=== PATIENT | female | born 1965 | race Caucasian/White ===

== ENCOUNTER → 2020-01-20 | Outpatient (CLI) | payer BC | LOC: M.NUC 01-15 08:49 | DX: M25.551 Pain in right hip (principal) ==

== ENCOUNTER → 2020-01-24 | Outpatient (CLI) | payer BC | LOC: M.CT 15:00 | DX: S32.501A Unspecified fracture of right pubis, initial encounter for closed fracture (principal); M51.37 Other intervertebral disc degeneration, lumbosacral region; Z98.890 Other specified postprocedural states; Z96.641 Presence of right artificial hip joint; W19.XXXA Unspecified fall, initial encounter; Y93.89 Activity, other specified; Y92.89 Other specified places as the place of occurrence of the external cause; Y99.8 Other external cause status ==